=== PATIENT | female | born 1940 | race Caucasian/White ===

== ENCOUNTER 2017-07-12 16:45 | Emergency (ER) | payer MEDICARE, OTHER ==
[~2017-07-12] VITALS: Ht 157.5 cm; Wt 63.5 kg
[2017-07-12 16:54] VITALS: BP 173/81
[2017-07-12] MEDS ORDERED: TDAP [DIPH/PERTUSSIS/TET] 0.5 ML VIAL IM ONE ×2 (17:30)
--- NOTE | 2017-07-12 18:00 | NUR ---
WOUND CARE PROVIDED.
== END 2017-07-12 18:22 | disposition home or self-care (01) ==
LOC: ER 16:53
DX: S60.472A Other superficial bite of right middle finger, initial encounter (principal); W53.21XA Bitten by squirrel, initial encounter; Y93.89 Activity, other specified; Y92.89 Other specified places as the place of occurrence of the external cause; Y99.8 Other external cause status; K21.9 Gastro-esophageal reflux disease without esophagitis
CPT/HCPCS: 90715; A4606; Z7610

== ENCOUNTER 2018-04-07 22:52 | Emergency (ER) | payer MEDICARE, OTHER ==
[~2018-04-07] VITALS: Ht 152.4 cm; Wt 81.6 kg
[2018-04-07 22:59] VITALS: BP 164/80
[2018-04-07 23:32] LABS: APPEARANCE,URINE CLEAR (CLEAR); BILIRUBIN,URINE NEGATIVE (NEGATIVE); BLOOD, URINE NEGATIVE Ery/uL (NEGATIVE); COLOR,URINE YELLOW (YELLOW); KETONES,URINE NEGATIVE (NEGATIVE); LEUKOCYTE ESTERASE ,URINE NEGATIVE (NEGATIVE); NITRITE, URINE NEGATIVE (NEGATIVE); PROTEIN,URINE NEGATIVE (NEGATIVE); UGLUCOSE NEGATIVE (NEGATIVE); UROBILINOGEN,URINE 0.2 EU/dL (0.2)
--- NOTE | 2018-04-08 | NUR ---
420ML OF URINE OUTPUT NOTED S/P GUERRERO CATH INSERTION. URINE LIGHT YELLOW IN COLOR AND CLEAR. MD AWARE
--- NOTE | 2018-04-08 01:04 | NUR ---
ASSUMED D/C CARE ONLY AT THIS TIME ON BEHALF OF PRIMARY NURSE TIAGO. GUERRERO CATHETER REMOVED BY LAVERNE/COOKIE. PT TOLERATING WELL. DENIES ANY SX'S AT THSI TIME. NON DIAPHORETIC. RESP EVEN AND UNLABORED. Patient discharged to home in stable condition. Written and verbal after care instructions given. Patient verbalizes understanding of instruction. Ambulatory with a steady gait.
== END 2018-04-08 01:09 | disposition home or self-care (01) ==
LOC: ER 22:54
DX: R33.9 Retention of urine, unspecified (principal); I10 Essential (primary) hypertension; K21.9 Gastro-esophageal reflux disease without esophagitis; F32.9 Major depressive disorder, single episode, unspecified; Z60.2 Problems related to living alone
CPT/HCPCS: 81000-TC; A4606; Z7610

== ENCOUNTER 2019-04-12 16:51 | Emergency (ER) | payer MEDICARE, OTHER ==
[~2019-04-12] VITALS: Ht 149.9 cm; Wt 80.7 kg
[2019-04-12 17:31] VITALS: BP 155/85
--- NOTE | 2019-04-12 18:14 | NUR ---
PT BIB FAMILY C/O VAGINAL BLEEDING X1 DAY, BRIGHT RED BLOOD "CONSISTENT FLOW" WITHOUT CLOTS. DENIES DYSURIA BUT REPORTS VAGINAL BURNING "ALL THE TIME". RESP EVEN UNLABORED. SKIN WARM DRY. SITTING ON EDGE OF BED IN ER BED 16 WITH FAMILY AT BEDSIDE.
[2019-04-12] MEDS ORDERED: AZITHROMYCIN 250 MG TABLET PO ONE (19:00)
[2019-04-12] MEDS ORDERED: FLUCONAZOLE (100 MG) 100 MG TABLET PO ONE (19:00)
[2019-04-12] MEDS ORDERED: CEFTRIAXONE 500 MG VIAL IM ONE (19:00)
[2019-04-12] MEDS ORDERED: CEFTRIAXONE 500 MG VIAL ONE (19:01)
[2019-04-12] MEDS ORDERED: LIDOCAINE /MPF 1% VIAL 5 ML VIAL ONE (19:01)
[2019-04-12] MEDS ORDERED: FLUCONAZOLE (100 MG) 100 MG TABLET ONE (19:01)
[2019-04-12] MEDS ORDERED: AZITHROMYCIN 250 MG TABLET ONE (19:19)
--- NOTE | 2019-04-12 19:32 | NUR ---
Patient discharged to home in stable condition. Written and verbal after care instructions given. Patient and family verbalizes understanding of instruction.
== END 2019-04-12 19:33 | disposition home or self-care (01) ==
LOC: ER 16:55
DX: N81.10 Cystocele, unspecified (principal); N76.0 Acute vaginitis; I10 Essential (primary) hypertension; K21.9 Gastro-esophageal reflux disease without esophagitis; F32.9 Major depressive disorder, single episode, unspecified; Z60.2 Problems related to living alone
CPT/HCPCS: 96372; 99283; J0696; J3490

== ENCOUNTER 2021-10-13 13:01 | Emergency (ER) | payer MEDICARE, OTHER ==
[~2021-10-13] VITALS: Ht 149.9 cm; Wt 79.4 kg
--- NOTE | 2021-10-13 13:25 | NUR ---
TO ER BED 6. LOW BACK PAIN,S/P FALL BACKWARDS LANDING ON HER BUTTOCKS HER URINE WAS ALSO NOTED TO BE PINKISH, SHE THINKS IT'S BLOOD. VITALS ARE WITHIN NORMAL LIMITS, NO RESP DISTRESS NOTED. WARM BLANKET PROVIDED FOR COMFORT. AWAITING MD ACUÑA.
--- NOTE | 2021-10-13 15:05 | NUR ---
PT TAKEN TO CT VIA CLARICE
--- NOTE | 2021-10-13 15:13 | NUR ---
DAUGHTER REFUSED BLOOD DRAW FOR THE PATIENT. MADE AWARE
[2021-10-13] MEDS ORDERED: HYDROCODONE/APAP 5/325MG TABLET ONE (15:24)
[2021-10-13] MEDS ORDERED: HYDROCODONE/APAP 5/325MG TABLET PO ONE (15:30)
--- NOTE | 2021-10-13 15:32 | NUR ---
BACK TO ROOM FROM CT SCAN
--- NOTE | 2021-10-13 15:41 | NUR ---
PT REFUSED LABS TO BE DRAWN, MD AWARE.
[2021-10-13] MEDS ORDERED: OXYC5CAP18 PO (16:37)
[2021-10-13] MEDS ORDERED: ACET-2605 PO (16:37)
[2021-10-13] MEDS ORDERED: INHA1INH6 MC (16:38)
--- NOTE | 2021-10-13 16:46 | NUR ---
Patient discharged to home in stable condition. Written and verbal after care instructions given. Patient verbalizes understanding of instruction.
[2021-10-13 16:48] VITALS: BP 148/63
== END 2021-10-13 16:48 | disposition home or self-care (01) ==
LOC: ER 13:25
DX: S22.42XA Multiple fractures of ribs, left side, initial encounter for closed fracture (principal); S22.080A Wedge compression fracture of T11-T12 vertebra, initial encounter for closed fracture; R51.9 Headache, unspecified; M54.2 Cervicalgia; R07.81 Pleurodynia; R06.02 Shortness of breath; R50.9 Fever, unspecified; R05.9 Cough, unspecified; I10 Essential (primary) hypertension; K21.9 Gastro-esophageal reflux disease without esophagitis; F32.A Depression, unspecified; Z60.2 Problems related to living alone; Z79.899 Other long term (current) drug therapy; W18.30XA Fall on same level, unspecified, initial encounter; Y93.89 Activity, other specified; Y92.89 Other specified places as the place of occurrence of the external cause; Y99.8 Other external cause status
CPT/HCPCS: 70450-TC; 71250-TC; 72125-TC; 72131-TC